=== PATIENT | male | born 1950 | race African-American/Black ===

== ENCOUNTER 2018-09-20 21:21 | Emergency (ER) | payer MEDICAID ==
[~2018-09-20] VITALS: Ht 175.3 cm; Wt 49.9 kg
[2018-09-20 21:25] VITALS: BP 117/76
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
[2018-09-20] MEDS ORDERED: IBUPROFEN600 MG ORAL (21:47)
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
--- NOTE | 2018-09-21 12:38 | Diagnostic Imaging Report ---
Indication: Left thigh pain Comparison: None Findings: 2 views of the left femur were obtained. No acute fractures, malalignment, erosions or periostitis are identified. There are vascular calcifications in the femoral artery. Soft tissues are unremarkable. Impression: Negative examination of the femur
== END 2018-09-20 22:05 | disposition home or self-care (01) ==
LOC: EMR 21:56
DX: S70.12XA Contusion of left thigh, initial encounter (principal); V43.52XA Car driver injured in collision with other type car in traffic accident, initial encounter; Y92.410 Unspecified street and highway as the place of occurrence of the external cause
CPT/HCPCS: 99283